=== PATIENT | male | born 1990 | race Caucasian/White ===

== ENCOUNTER 2018-01-21 10:57 | Emergency (ER) | payer MEDICAID ==
[~2018-01-21] VITALS: Ht 170.2 cm; Wt 100.0 kg
[~2018-01-21 10:57] MED LIST: PHEN1PAC
[2018-01-21] MEDS ORDERED: LIDOCAINE HCL 1% 10 ML VIAL INJ ONE (12:45)
[2018-01-21] MEDS ORDERED: BUPIVACAINE HCL/PF 0.25% 10 ML VIAL INJ ONE (12:45)
[2018-01-21] MEDS ORDERED: PERTUSS(ACELL),DIPH,TET VAC/PF 0.5 ML VIAL IM ONE (13:00)
[2018-01-21 14:23] VITALS: BP 141/70
[2018-01-21] MEDS ORDERED: BACITRACIN 0.9 GM PACKET OINTMENT TP ONE (14:30)
== END 2018-01-21 14:50 | disposition home or self-care (01) ==
LOC: EMS 11:00
DX: S61.211A Laceration without foreign body of left index finger without damage to nail, initial encounter (principal); R03.0 Elevated blood-pressure reading, without diagnosis of hypertension; F12.90 Cannabis use, unspecified, uncomplicated; Z88.0 Allergy status to penicillin; W26.0XXA Contact with knife, initial encounter; Y93.89 Activity, other specified; Y92.89 Other specified places as the place of occurrence of the external cause; Y99.8 Other external cause status
CPT/HCPCS: 12001; 90471; 90715; 99283; J3490 ×2